=== PATIENT | female | born 1960 ===

== ENCOUNTER → 2017-10-27 | Outpatient (CLI) | payer OTHER ==
--- NOTE | 2017-11-14 10:38 | USB ---
Reason for exam: clinical finding. History: Implant Removal of both breasts, July 18, 2017. Saline implants in both breasts, 2016. Silicone gel implants in both breasts, 1989. Indicated problem(s): palpable abnormality, breast implant problem, lump or thickening, and large axillary lymph nodes in both breasts. Pain in the left breast. Physical Findings: Nurse Summary: area thick, multiple prominent nodular lymph nodes (nurse dw)> US Breast LT Left complete breast ultrasound includes all four quadrants, the retroareolar region and axilla. Finding demonstrates a 1.0 x 1.1 x 0.5cm oval, solid, hypoechoic, vascular lesion at 2 o'clock not previously identified, a 0.7 x 0.6 x 0.3cm oval, solid, hypoechoic lesion at 3 o'clock not previously identified and a 1.6 x 1.6 x 1.7cm round, cystic lesion at the axilla stable from 04/20/17, largest of multiple cystic areas. Right limited breast ultrasound including focal area of concern, retroareolar and axilla demonstrates a 3.4cm hyperechoic probable silicone at 2 o'clock. These results were verbally communicated with the patient on 11/14/17. ASSESSMENT: Suspicious, BI-RAD 4 RECOMMENDATION: Surgical consultation of the left breast. Manage patient on a clinical basis. Called with mammographic findings and has scheduled an appointment for the patient for 11/23/17 at 8:[address] Carr. PRELIMINARY REPORT CALLED AND FAXED TO DR. CARR ON 11/14/17.
== END | disposition home or self-care (01) ==
LOC: RADUSWWP 07:22
PROVIDERS: ATTEND Family Medicine
DX: N63.20 Unspecified lump in the left breast, unspecified quadrant (principal); N64.4 Mastodynia

== ENCOUNTER → 2017-12-08 | Outpatient (CLI) | payer OTHER ==
[2017-12-08 11:54] VITALS: BP 130/75; PULSE 50; TEMP 97.5; BMI 19.1
--- NOTE | 2017-12-08 12:44 | P.GSHP ---
History of Present Illness H&P Date: 12/08/17 Patient is a 57 year old white female who had bilateral silicone breast implants placed in 1989. She did well for many years and then in approximately 2006 she did a back flip on a trampoline and noted that the implant in the left breast ruptured. She has been followed by a general/plastic surgeon in [place] and wishes to return to her for any treatment. She recently noticed swelling and erythema in her left axilla and was concerned that this may be an emergent situation. She underwent a surgical procedure in June 2017 at which time left axillary lymph node and scar tissue was debulked. Operative report is reviewed although pathology is not available. The patient came back to [place] and noted that she had some erythema and swelling in the left axilla she was seen by her primary care doctor and started on antibiotics. She also had an ultrasound performed 6817. The ultrasound of the left breast revealed a 1.1 cm solid vascular lesion at 2:00 not previously seen, a 0.7 cm lesion at 3 :00 not previously seen, and a 1.6 cm cystic lesion in the axilla. In the right breast there was a 3.4 cm hypoechoic probable silicone area noted at 2: 00. The patient was not willing to give any further history and continues to state that she wanted to go back to [place]. Physical examination: Examination of the left breast and axilla was done in a limited fashion as the patient wanted to be sure that there was no acute process ongoing No acute infection was identified Nodularity was noted in the left axillary area Scar is noted related to prior breast surgery Impression/plan: 1. 57-year-old white female with ultrasound abnormality noted in the left breast 2. Extensive history related to prior left breast ruptured implant 3. Patient wishes to return to [place] for treatment related to the left breast At this time the patient does not appear to have an acute inflammatory or infectious process in the left axilla or left breast. She does have a radiographic abnormality on an ultrasound performed 6817 which is being reviewed with radiology it was considered a BIRADS 4 lesion, for which biopsy may be recommended. She understands this. At this time she states that she does not want any further intervention here and wishes to return to [place]. cc: Dr. Carr, Dr. Carmen Colbert [facility], [place], [place], [address] Past Medical History Past Medical History: Thyroid Disorder History of Any Multi-Drug Resistant Organisms: None Reported Past Surgical History: Breast Surgery Additional Past Surgical History / Comment(s): silicone implants in the , patient stated that she's had multiple breast surgeries Smoking Status: Former smoker Additional Past Alcohol Use History / Comment(s): quit smoking 2005 Medications and Allergies Home Medications Medication Instructions Recorded Confirmed Type Cholecalciferol [Vitamin D3] 1,000 unit PO DAILY 12/08/17 12/08/17 History Levothyroxine Sodium 25 mcg PO QAM 12/08/17 12/08/17 History Multivitamins, Thera [Multivitamin 1 tab PO DAILY 12/08/17 12/08/17 History (formulary)] Zolpidem [Ambien] 10 mg PO HS PRN 12/08/17 12/08/17 History Allergies Allergy/AdvReac Type Severity Reaction Status Date / Time No Known Allergies Allergy Unverified 12/08/17 12:02 Surgical - Exam Vital Signs Temp Pulse BP Pulse Ox 97.5 F L 50 L 130/75 98 12/08/17 11:52 12/08/17 11:52 12/08/17 11:52 12/08/17 11:52
--- NOTE | 2017-12-08 12:57 | P.PN ---
Progress Note - Text Progress Note Date: 12/08/17 Patient's ultrasound was reviewed with DR. Cartwright from radiology. The recommendation is that the patient receive a mammogram and then at minimum a core biopsy of the lesion at 2:00 in the left breast. This information will be relayed to the patient and Dr. Gaines. cc: Dr. Gaines
--- NOTE | 2017-12-08 14:03 | P.PN ---
Progress Note - Text Progress Note Date: 12/08/17 Information reguarding the patient's need for a mammogram and recommendation of ultrasound core biopsy was discussed with Dr. Carr. Dr. Carr relates that the patient had an mammogram performed in [place] in December of last year, however we do not have that report. We have attempted to contact the patient and will continue to do so.
--- NOTE | 2017-12-14 10:12 | P.PN ---
Progress Note - Text Progress Note Date: 12/14/17 Dear Elza, We understand the you have decided to transfer your breast care to [place]. We also understand that you have been provided with your medical records. Please understand that with your recent ultrasound abnormalities it has been recommended that a biopsy be considered. If we can be of any further assistance please do not hesitate to contact us. Best regards, Dr. Mily Grossman Cc: Dr. Carr
== END ==
LOC: WWCWWP 11:00
PROVIDERS: ATTEND Surgery
DX: Z53.9 Procedure and treatment not carried out, unspecified reason (principal)

== ENCOUNTER → 2018-01-04 | Outpatient (CLI) | payer OTHER ==
--- NOTE | 2018-01-04 13:06 | MM ---
Reason for exam: additional evaluation requested from prior study. History: Patient is postmenopausal. Implant Removal of both breasts, July 18, 2017. Saline implants in both breasts, 2015. Silicone gel implants in both breasts, 1989. Physical Findings: Nurse Summary: A 0.5 cm lesion in the right axilla. MG Diag Mamm Implant LT w CAD CC and MLO view(s) were taken of the left breast. Prior study comparison: October 27, 2017, left breast US breast LT. April 20, 2017, left breast ultrasound, performed at [place]. The breast tissue is extremely dense which could obscure a lesion on mammography. There is a persistant Left upper inner quadrant mass with associated calcifications. Implant displaced views could not be performed due to patient pain. ASSESSMENT: Incomplete: need additional imaging evaluation, BI-RAD 0 RECOMMENDATION: Ultrasound of the left breast.
--- NOTE | 2018-01-04 13:19 | USB ---
Reason for exam: additional evaluation requested from abnormal screening. History: Patient is postmenopausal. Implant Removal of both breasts, July 18, 2017. Saline implants in both breasts, 2016. Silicone gel implants in both breasts, 1989. US Breast Limited LT Left limited breast ultrasound including focal area of concern, retroareolar and axilla demonstrates a 1.0 x 0.4 x 1.2 cm oval solid lesion at 2 o'clock, a 0.7 x 0.3 x 0.8 cm oval solid lesion at 3 oclock, which a 6 month follow up ultrasound is recommended. A 1.7 x 1.6 cm round cystic lesion in the axilla that is thought to be an abnormal node. A 0.9 x 0.9 x 0.9 cm cystic lesion at 10 o'clock and a second 0.8 x 0.7 x 0.7 cm cystic lesion at 10 o'clock that could be silicone and a 6 month follow up ultrasound is recommended for these. These results were verbally communicated with the patient and result sheet given to the patient on 01/04/18. ASSESSMENT: Suspicious, BI-RAD 4 RECOMMENDATION: Ultrasound core biopsy of the left breast. Called Dr. Gaines with mammographic findings and has scheduled an appointment for the patient for 01/12/18 at 9:[address] Kulkarni. PRELIMINARY REPORT CALLED AND FAXED TO DR. KULKARNI ON 01/04/18.
== END | disposition home or self-care (01) ==
LOC: RADMAMWWP 07:02
PROVIDERS: ATTEND Family Medicine
DX: N63.20 Unspecified lump in the left breast, unspecified quadrant (principal); N64.4 Mastodynia; R92.8 Other abnormal and inconclusive findings on diagnostic imaging of breast
CPT/HCPCS: 77065

== ENCOUNTER → 2018-01-12 | Outpatient (CLI) | payer OTHER ==
[2018-01-12 09:35] VITALS: BP 120/75; PULSE 51; RESP 12; TEMP 97.3; BMI 19.6
--- NOTE | 2018-01-12 10:18 | P.GSHP ---
History of Present Illness H&P Date: 01/12/18 Patient is a 57 year old white female status post 1990 had bilateral silicone breast implants. In 2005 she jumped on a trampoline, she did a back flip and landed on the left breast implant and feels like it ruptured at that point in time. She subsequently saw a Dr. in [place], Dr. Roche, a plastic surgeon who left the right implant in place but removed the left implant without replacing it and the patient had a drain for 3 months and multiple areas of silicone that were removed. She than had an implant exchange in 2006 on the left, and replaced the right side also. She than had some further cosmetic surgery done and was referred to a reconstructive surgeon. She saw Dr. Gongora, she had a bilateral implant exchange again in 2012. She again had complaints and was seen by Dr. Jaime in [place]. She had the implants exchanged for a fourth time , in 2015. The patient had a bilateral mammogram in [place] in March 2017. At that time multiple foci of what appeared to be free silicone in silicone granulomas were noted in the afferent left axilla. No no was made of concern about the right breast. She will be due for a right breast mammogram in March 2018. In June of 2017 she noted pain in the left axilla, and had surgery a node removed as well as silicone, and scar tissue. Pathology was negative for cancer. She most recently was concerned about infection in the left axilla. At this time the patient states that she was started on antibiotics and that the swelling and redness have resolved and she is doing well. At the time however she did have an ultrasound of the left breast as well as a left breast mammogram at our institution. The left breast mammogram recommended an ultrasound and the ultrasound revealed a 0.2 cm solid lesion at 2:00, a 0.7 cm lesion at 3:00 and a six-month follow-up ultrasound was recommended. Additionally a 1.7 cm lesion was noted in the axilla that was thought to be an abnormal node. A 0.9 cystic lesion was seen at 10:00 and a second 0.8 cm cystic lesion at 10:00 which is thought to be silicone and six-month follow-up was recommended for these. The area of greatest concern was the axillary lesion and ultrasound core biopsy/aspiration of the left breast axillary lesion was recommended after reviewing the radiographs with Dr. Bennett. The patient states that the area of concern in the left axilla has decreased in size and is not bothering her at this time. It is still noticeable to her but much diminished. The patient drinks coffee approximately 2 cups per day, is not drink soda. She does not eat much chocolate. She is not a smoker. Family History: 1. father: pancreatic Hormonal: menarche: 10 : none, tubes blocked menopause: late 40's BCP: none hormones: none Past Surgical History: 1. rhinoplasty 2. multiple breast surgries 3. bone shaved on her legs right leg immobilize for three months Past Medical History: 1. hypothyroid Social: smoke: none Alcohol: Negative Drugs: Negative - Constitutional Constitutional: Denies chills, Denies fever - EENT Eyes: denies blurred vision, denies pain Ears: deny: decreased hearing, tinnitus Ears, nose, mouth and throat: Denies headache, Denies sore throat - Breasts Breasts: bilateral: as per HPI - Cardiovascular Cardiovascular: Denies chest pain, Denies shortness of breath - Respiratory Respiratory: Denies cough, Denies 7 - Gastrointestinal Gastrointestinal: Denies abdominal pain, Denies diarrhea, Denies nausea, Denies vomiting - Genitourinary (Female) Genitourinary: Denies dysuria, Denies hematuria - Menstruation Menstruation: Reports postmenopausal - Musculoskeletal Musculoskeletal: Denies myalgias - Integumentary Integumentary: Denies pruritus, Denies rash - Neurological Neurological: Denies numbness, Denies weakness - Psychiatric Psychiatric: Denies anxiety, Denies depression - Endocrine Comment: hypothyroid - Hematologic/Lymphatic Comment: none - Allergic/Immunologic Comment: none Past Medical History Past Medical History: Thyroid Disorder History of Any Multi-Drug Resistant Organisms: None Reported Past Surgical History: Breast Surgery Additional Past Surgical History / Comment(s): silicone implants in the , patient stated that she's had multiple breast surgeries Smoking Status: Former smoker Additional Past Alcohol Use History / Comment(s): quit smoking 2006 Medications and Allergies Home Medications Medication Instructions Recorded Confirmed Type Cholecalciferol [Vitamin D3] 1,000 unit PO DAILY 12/08/17 12/08/17 History Levothyroxine Sodium 25 mcg PO QAM 12/08/17 12/08/17 History Multivitamins, Thera [Multivitamin 1 tab PO DAILY 12/08/17 12/08/17 History (formulary)] Zolpidem [Ambien] 10 mg PO HS PRN 12/08/17 12/08/17 History Allergies Allergy/AdvReac Type Severity Reaction Status Date / Time No Known Allergies Allergy Unverified 01/09/18 10:01 Surgical - Exam - General well developed, well nourished, no distress - Eyes normal ocular movement, no icteric - ENT no hearing loss, no congestion - Neck no masses, trachea midline - Respiratory normal respiratory effort, clear to auscultation - Cardiovascular Rhythm: regular Heart Sounds: normal: S1, S2 - Abdomen Abdomen: soft, non tender, no guarding, no rigid, no rebound - Neurologic no disoriented, no combative - Musculoskeletal normal gait, normal posture - Psychiatric oriented to time, oriented to person, oriented to place, speech is normal, memory intact Breast examination: Right breast: Multiple scars from prior breast implant placement multiple positional exam no dominant masses or nodules of concern Right axilla: No adenopathy of concern Left breast: Multiple scars from prior surgeries some increased area of nodularity at approximately the 9:00 axillary position which is in close proximity facility to the implant Left axilla: Questionable shotty adenopathy of concern no enlarged nodes which are worrisome Results Mammogram and ultrasound reviewed Assessment and Plan Assessment: Impression/plan: 1. Multiple prior breast biopsies related to implant placement 2. Ruptured implant left breast which has been removed and replaced; patient has had silicone granulomas removed from the left breast area 3. Hypothyroidism 4. abnormal ultrasound of the left breast 5. palpable area of the left lateral axillary area may correspond to that which is seen on ultrasound Plan: 1. Ultrasound-guided aspiration/biopsy of lesion of concern in the left axilla 2. Confirm that the area that is palpable is consistent with that which is seen on ultrasound if not this may require needle biopsy as well 3. Medical management of medical problems We have had a long discussion regarding the risks and benefits of needle biopsy/ aspiration of the area of concern on the ultrasound as well as that which is palpable. The patient understands the risks and benefits. She has reviewed the ultrasound with us with Dr. Bennett of radiology. At this time we have discussed options of conservative management and waiting versus options of needle biopsy and she wishes to proceed with needle biopsy. We will use extreme caution to assure that the implants are not damaged, however we have discussed this risk as well. The patient understands the risks and benefits this will be scheduled in the near future. Cc: Dr. Carr
== END | disposition home or self-care (01) ==
LOC: WWCWWP 09:12
PROVIDERS: ATTEND Surgery
DX: Z53.9 Procedure and treatment not carried out, unspecified reason (principal)

== ENCOUNTER 2018-01-29 07:53 | Day surgery (SDC) | payer OTHER ==
[2018-01-29 08:23] VITALS: RESP 16; TEMP 97.4
[2018-01-29 09:31] VITALS: BP 138/72; PULSE 68
--- NOTE | 2018-01-29 10:29 | US ---
EXAMINATION TYPE: US biopsy soft tissue/muscle, fine-needle aspiration DATE OF EXAM: 01/29/2018 HISTORY: Left axillary mass. FINDINGS: Maximal barrier technique was utilized. The skin overlying a suitable path to the patient's mass was localized with ultrasound and the overlying skin prepped and draped. Ultrasound was utilized with sterile technique. Lidocaine was used for local anesthesia. 21-gauge needle was advanced under ultrasound guidance, minimal clear, gel-like material was aspirated. A skin dimas was made with a scalpel. An 18-gauge needle was advanced under direct ultrasound guidance and core specimen obtained of the mass. Specimen submitted in formalin to Pathology. Following the procedure, hemostasis achieved and the patient is discharged in stable condition without complication. IMPRESSION:STATUS POST ULTRASOUND GUIDED CORE BIOPSY OF left axillary MASS, PATHOLOGY IS PENDING. THIS PROCEDURE IS PERFORMED BY THE UNDERSIGNED. Pathology Results: Benign LEFT AXILLA, CORE BIOPSY: Benign fibroadipose tissue with fat necrosis. See note. Recommendation Follow up ultrasound in 6 months. EVELYNE
== END 2018-01-29 09:35 | disposition home or self-care (01) ==
LOC: RADPROMAIN 07:53
PROVIDERS: ATTEND Surgery
DX: M79.89 Other specified soft tissue disorders (principal)
CPT/HCPCS: 20206; 76942; 88305

== ENCOUNTER → 2018-03-09 | Outpatient (CLI) | payer OTHER ==
[2018-03-09 08:53] VITALS: BP 123/73; PULSE 56; RESP 14; TEMP 97.8; BMI 19.1
--- NOTE | 2018-03-09 09:38 | P.PN ---
Subjective Progress Note Date: 03/09/18 Principal diagnosis: Patient is status post ultrasound-guided core biopsy of left axillary palpable/ radiographic abnormality at approximately the 3-4 o'clock position. The pathologic findings were consistent with benign fibroadipose adipose tissue with fat necrosis. The biopsy was felt to be scanty and may not completely. Gage Maker of the lesions seen and clinical/imaging study of correlation was recommended. Her radiographs were reviewed with the radiologist with the pathology findings as well. The area of concern is noted to be stable over her radiographs done in 2017 and with this in mind it was felt that this could be managed conservatively with repeat left breast mammogram and ultrasound in 6 months. Of some concern is the fact that there is some palpable change in the lateral aspect of the breast tissue/axillary area. It is believed that this is the area which was sampled however I discussed with the patient that I cannot with certainty confirm this. The patient states that the area of nodularity has been present for approximately 6 months without change. The patient has been given the option of an open biopsy of this area however at this time wishes to return to [place] where her plastic surgeon is as she wishes to have evaluation with her. The patient is not complaining of any pain in her breast at this time. The patient is not complaining of any evidence of any infection in her breast. Objective - Vital Signs Vital signs: Vital Signs Temp 97.8 F 03/09/18 08:45 Pulse 56 L 03/09/18 08:45 Resp 14 03/09/18 08:45 BP 123/73 03/09/18 08:45 Pulse Ox 99 03/09/18 08:45 Intake & Output 03/08/18 03/09/18 03/09/18 18:59 06:59 18:59 Weight 48.988 kg - Constitutional General appearance: Present: thin - EENT Eyes: Present: EOMI ENT: Present: hearing grossly normal - Respiratory Respiratory: bilateral: CTA - Cardiovascular Rhythm: regular Heart sounds: normal: S1, S2 - Gastrointestinal General gastrointestinal: Present: soft - Musculoskeletal Musculoskeletal: Present: gait normal - Psychiatric Psychiatric: Present: A&O x's 3, appropriate affect, intact judgment & insight - Additional findings Additional findings: Left breast examination: The patient left breast examination has well-healed scars from prior implant placement and replacement No dominant masses or nodules of concern in the left breast In the 3 o'clock position the patient has an area of slight nodularity which is approximately 6-8 mm in size This is the area which is believed to have been biopsied by the radiologist No adenopathy of concern in the axilla Assessment and Plan Assessment: Impression: 1. Patient status post ultrasound core biopsy of the left axillary region/ benign fibroadipose tissue with fat necrosis 2. Small palpable abnormality left axillary area believed to be consistent with the area which was biopsied this is approximately 8 mm in size 3. Multiple prior breast biopsies related to implant placement 4. Ruptured implant left breast which has been removed and replaced patient has had silicone granulomas removed from the left breast area 5. No evidence of any infection in the breast at this time Plan: The patient has been given the option of surgical resection of the palpable abnormality in the axillary area of the left breast. The patient at this time wishes to avoid surgery and is planning to follow up with her plastic surgeon in [place]. She understands I cannot guarantee that this is not a malignant process without resectional biopsy however she wishes to avoid this at the present time. 1. Appointment with plastic surgeon in [place] this is to be made by the patient 2. Repeat visit and exam here in 2 months with repeat mammogram and ultrasound of the left breast in 6 months 3. The patient will call immediately if she has any changes or questions of concern Cc: Dr. Carr
== END | disposition home or self-care (01) ==
LOC: WWCWWP 08:41
PROVIDERS: ATTEND Surgery
DX: Z53.9 Procedure and treatment not carried out, unspecified reason (principal)